=== PATIENT | male | born 1980 | race Caucasian/White ===

== ENCOUNTER 2017-08-29 14:51 | Emergency (ER) | payer MEDICAID ==
[~2017-08-29] VITALS: Ht 170.2 cm; Wt 98.9 kg
[2017-08-29 14:59] VITALS: Ht 170.2 cm; Wt 98.9 kg
[2017-08-29 18:53] VITALS: BP 132/70
== END 2017-08-29 18:53 | disposition home or self-care (01) ==
LOC: ED 14:51
DX: R51 Headache (principal); M25.512 Pain in left shoulder; J45.909 Unspecified asthma, uncomplicated; M54.6 Pain in thoracic spine; V49.9XXA Car occupant (driver) (passenger) injured in unspecified traffic accident, initial encounter; Y93.73 Activity, racquet and hand sports; Y92.488 Other paved roadways as the place of occurrence of the external cause; Y99.8 Other external cause status
CPT/HCPCS: J1885; Q0162